=== PATIENT | female | born 1975 | race Caucasian/White ===

== ENCOUNTER 2017-11-25 16:00 | Emergency (ER) | payer SELFPAY ==
[~2017-11-25] VITALS: Ht 172.7 cm; Wt 97.5 kg
== END 2017-11-25 16:18 | disposition home or self-care (01) ==
LOC: ED 16:00
DX: M25.561 Pain in right knee (principal)

== ENCOUNTER 2018-09-03 17:53 | Emergency (ER) | payer OTHER ==
[~2018-09-03] VITALS: Ht 172.7 cm; Wt 104.3 kg
--- OUTSIDE RECORDS SUMMARY | 2018-09-03 17:56 | XMS ---
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 Primary Care Current PHONE: Unknown ALIE HERNANDEZ Primary [facility] Current PHONE: Unknown Day has no Care Guidelines for this patient. E.D. VISIT COUNT (12 MO.) [address] [facility] TOTAL 2 NOTE: Visits indicate total known visits. ED/UCC VISIT TRACKING (12 MO.) 09/03/2018 17:54 TERELL Peña [place] TYPE: Emergency COMPLAINT: - SOB/CHEST HEAVINESS 11/25/2017 16:02 TERELL Peña OR TYPE: Emergency COMPLAINT: - R KNEE PAIN/MSE TO CLINIC DIAGNOSES: - Pain in right knee INPATIENT VISIT TRACKING (12 MO.) No inpatient visits to display in this time frame [email or web address]
--- NOTE | 2018-09-04 12:34 | EKG ---
[facility] [address] [place] [address] Signed Normal sinus rhythm Nonspecific ST and T wave abnormality in the anterior leads Abnormal ECG No previous ECGs available Confirmed by VANDANA BREEN MD ([id number]) on 09/04/2018 12:33:58 PM Electronically Signed By: VANDANA BREEN MD 09/04/18 1234 PATIENT NAME: BELINDA FRANKLIN EDWINA Electrocardiogram DATE OF : 73 PHYSICIAN: VANDANA BREEN MD REPORT #: [id number] REPORT IS CONFIDENTIAL AND NOT TO BE RELEASED WITHOUT AUTHORIZATION
== END 2018-09-03 21:06 | disposition home or self-care (01) ==
LOC: ED 17:53
DX: J06.9 Acute upper respiratory infection, unspecified (principal); Z90.710 Acquired absence of both cervix and uterus; Z88.0 Allergy status to penicillin; Z88.6 Allergy status to analgesic agent; Z91.040 Latex allergy status
CPT/HCPCS: 71045; 71260; 80053; 84484; 85025; 85379; 93005; 93010; 99285-25; J7030

== ENCOUNTER 2018-12-13 19:21 | Emergency (ER) | payer OTHER ==
[~2018-12-13] VITALS: Ht 172.7 cm; Wt 113.4 kg
--- OUTSIDE RECORDS SUMMARY | 2018-12-13 19:24 | XMS ---
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 EMalik VISIT COUNT (12 MO.) 2 TERELL Arrieta TOTAL 2 NOTE: Visits indicate total known visits. ED/UCC VISIT TRACKING (12 MO.) 12/13/2018 19:21 TERELL Peña OR TYPE: Emergency COMPLAINT: - FLANK PAIN 09/03/2018 17:54 TERELL Peña OR TYPE: Emergency COMPLAINT: - SOB/CHEST HEAVINESS DIAGNOSES: - Shortness of breath - Allergy status to penicillin - Acute upper respiratory infection, unspecified - Latex allergy status - Allergy status to analgesic agent status - Acquired absence of both cervix and uterus INPATIENT VISIT TRACKING (12 MO.) No inpatient visits to display in this time frame [email or web address]
[2018-12-13] MEDS ORDERED: PHENTERMINE HCL30 MG PO (19:58)
[2018-12-13] MEDS ORDERED: EC-NAPROXEN500 MG PO (19:58)
[2018-12-13] MEDS ORDERED: CEPHALEXIN500 MG PO (20:42)
== END 2018-12-13 20:55 | disposition home or self-care (01) ==
LOC: ED 19:21
DX: N39.0 Urinary tract infection, site not specified (principal); Z87.01 Personal history of pneumonia (recurrent); Z88.0 Allergy status to penicillin; Z88.8 Allergy status to other drugs, medicaments and biological substances; Z91.040 Latex allergy status; Z79.899 Other long term (current) drug therapy
CPT/HCPCS: 81001; 99284

== ENCOUNTER 2022-03-16 15:38 | Emergency (ER) | payer OTHER ==
[~2022-03-16] VITALS: Ht 172.7 cm; Wt 113.4 kg
[~2022-03-16 15:38] MED LIST: CEPHALEXIN500 MG PO; EC-NAPROXEN500 MG PO; PHENTERMINE HCL30 MG PO
== END 2022-03-16 18:57 | disposition home or self-care (01) ==
LOC: ED 15:38
DX: J20.5 Acute bronchitis due to respiratory syncytial virus (principal); Z88.0 Allergy status to penicillin; Z88.6 Allergy status to analgesic agent; Z91.040 Latex allergy status; Z20.822 Contact with and (suspected) exposure to COVID-19
CPT/HCPCS: 71045; 87502; 99283-25; C9803; U0003

== ENCOUNTER 2022-05-08 04:02 | Emergency (ER) | payer OTHER ==
[~2022-05-08] VITALS: Ht 172.7 cm; Wt 117.9 kg
[2022-05-08] MEDS ORDERED: LIDOCAINE35.44 GM TOP (06:01)
[2022-05-08] MEDS ORDERED: ANTIBIOTIC28.4 GM TOP (06:01)
[2022-05-08] MEDS ORDERED: PREDNISONE20 MG PO (06:01)
== END 2022-05-08 06:30 | disposition home or self-care (01) ==
LOC: ED 04:02
DX: L23.9 Allergic contact dermatitis, unspecified cause (principal); Z88.0 Allergy status to penicillin; Z88.6 Allergy status to analgesic agent; Z91.040 Latex allergy status
CPT/HCPCS: 36415; 80053; 85025; 86140; 96365; 96375; 99283-25; A9270; J1100; J3370; J7060